=== PATIENT | male | born 1990 | race African-American/Black ===

== ENCOUNTER 2023-06-23 12:43 | Emergency (ER) | payer OTHER ==
[~2023-06-23] VITALS: Ht 188 cm; Wt 116.0 kg
[2023-06-23] MEDS ORDERED: IBUP-1022 PO (14:56)
[2023-06-23] MEDS: IBUPROFEN 600MG TAB PO ONE (14:57)
[2023-06-23 15:08] VITALS: BP 153/99; TEMP 97.9; O2SAT 100
== END 2023-06-23 15:09 | disposition home or self-care (01) ==
LOC: M ED 12:43
DX: S63.521A Sprain of radiocarpal joint of right wrist, initial encounter (principal); S63.656A Sprain of metacarpophalangeal joint of right little finger, initial encounter; S60.221A Contusion of right hand, initial encounter; X58.XXXA Exposure to other specified factors, initial encounter; Y92.9 Unspecified place or not applicable; Y93.89 Activity, other specified; Y99.9 Unspecified external cause status